=== PATIENT | female | born 1935 | race Caucasian/White ===

== ENCOUNTER → 2019-06-29 | Outpatient (CLI) | payer OTHER ==
[~2019-06-29] MED LIST: ACET325 PO; ASPI81CH PO; K-Phos Origina500 MG PO; LISI20 PO; OSEL75CA PO; Pedi-Dri 100,0060 GM TOP
[2019-06-29 17:04] LABS: BASOPHILS ABSOLUTE AUTO 0.06 K/mm3 (0.00-0.23); BASOPHILS PERCENT AUTO 1 % (0-2); EOSINOPHILS ABSOLUTE AUTO 0.14 K/mm3 (0.00-0.68); EOSINOPHILS PERCENT AUTO 2 % (0-6); Hematocrit 39.3 % (33.0-51.0); Hemoglobin 12.5 g/dL (11.5-16.0); IMMATURE GRAN ABSOLUTE AUTO 0.02 K/mm3 (0.00-0.10); IMMATURE GRAN PERCENT AUTO 0 % (0-1); LYMPHOCYTES ABSOLUTE AUTO 1.35 K/mm3 (0.84-5.20); LYMPHOCYTES PERCENT AUTO 22 % (21-46); MONOCYTES ABSOLUTE AUTO 0.53 K/mm3 (0.16-1.47); MONOCYTES PERCENT AUTO 9 % (4-13); Mean Corpuscular HGB 28.6 pg (26.0-34.0); Mean Corpuscular HGB Conc 31.8 g/dL (31.5-36.5); Mean Corpuscular Volume 90 fL (80-100); Mean Platelet Volume 10.3 fL (9.1-12.4); NEUTROPHILS ABSOLUTE AUTO 4.04 K/mm3 (1.96-9.15); NEUTROPHILS PERCENT AUTO 66 % (41-73); Platelet Count 432 K/mm3 (150-400); RDW Coefficient Variation 13.4 % (11.7-14.2); RDW Standard Deviation 43.9 fL (35.1-46.3); Red Blood Cell Count 4.37 M/mm3 (3.80-5.20); White Blood Cell Count 6.14 K/mm3 (4.00-11.30)
[2019-06-29 20:47] LABS: Alanine Aminotransfer (ALT/SGP 17 U/L (12-78); Albumin, Blood 3.3 g/dL (3.4-5.0); Albumin/Globulin Ratio 0.9 (0.8-1.8); Alk Phos 92 U/L (50-136); Anion Gap 4 mmol/L (6-16); Aspartate Aminotrans (AST/SGOT 12 U/L (12-37); Bilirubin, Total 0.4 mg/dL (0.1-1.0); Blood Urea Nitrogen 11 mg/dL (8-24); Bun/Creatinine Ratio 18.5 (12.0-20.0); CO2, Blood 30 mmol/L (21-32); Calcium, Blood 9.5 mg/dL (8.5-10.1); Chloride, Blood 106 mmol/L (98-108); Globulin, Blood 3.6 g/dL (2.2-4.0); Glomerular Filtration Rate >60 (60-); Glucose, Blood 110 mg/dL (70-99); Potassium, Blood 4.4 mmol/L (3.5-5.5); Sodium, Blood 140 mmol/L (136-145); Total Protein, Blood 6.9 g/dL (6.4-8.2)
== END | disposition home or self-care (01) ==
LOC: LAB EV 16:57 → LAB SHORT 16:57
PROVIDERS: Physician Assistant
DX: R20.2 Paresthesia of skin (principal)
CPT/HCPCS: 80053; 82607; 82746; 85025

== ENCOUNTER 2019-08-02 13:15 | Inpatient (IN) | payer MEDICARE ==
[~2019-08-02] VITALS: Ht 162.6 cm; Wt 73.4 kg
[2019-08-02 14:13] LABS: BASOPHILS ABSOLUTE AUTO 0.01 K/mm3 (0.00-0.23); BASOPHILS PERCENT AUTO 0 % (0-2); EOSINOPHILS PERCENT AUTO 0 % (0-6); Hematocrit 50.5 % (33.0-51.0); Hemoglobin 16.3 g/dL (11.5-16.0); IMMATURE GRAN ABSOLUTE AUTO 0.02 K/mm3 (0.00-0.10); IMMATURE GRAN PERCENT AUTO 1 % (0-1); LYMPHOCYTES ABSOLUTE AUTO 0.62 K/mm3 (0.84-5.20); LYMPHOCYTES PERCENT AUTO 17 % (21-46); MONOCYTES ABSOLUTE AUTO 0.49 K/mm3 (0.16-1.47); MONOCYTES PERCENT AUTO 13 % (4-13); Mean Corpuscular HGB 27.4 pg (26.0-34.0); Mean Corpuscular HGB Conc 32.3 g/dL (31.5-36.5); Mean Corpuscular Volume 85 fL (80-100); Mean Platelet Volume 11.5 fL (9.1-12.4); NEUTROPHILS ABSOLUTE AUTO 2.61 K/mm3 (1.96-9.15); NEUTROPHILS PERCENT AUTO 70 % (41-73); Platelet Count 251 K/mm3 (150-400); RDW Coefficient Variation 14.3 % (11.7-14.2); RDW Standard Deviation 44.3 fL (35.1-46.3); Red Blood Cell Count 5.95 M/mm3 (3.80-5.20); White Blood Cell Count 3.75 K/mm3 (4.00-11.30)
[2019-08-02 14:26] LABS: Albumin, Blood 3.1 g/dL (3.4-5.0); Albumin/Globulin Ratio 0.8 (0.8-1.8); Bilirubin, Total 0.4 mg/dL (0.1-1.0); Calcium, Blood 9.2 mg/dL (8.5-10.1); Creatinine, Blood 1.36 mg/dL (0.40-1.00); Globulin, Blood 3.9 g/dL (2.2-4.0); Potassium, Blood 3.7 mmol/L (3.5-5.5)
[2019-08-02] MEDS ORDERED: LISI20 PO (14:32)
[2019-08-02 16:10] LABS: Influenza A Negative (NEGATIVE); Influenza B Positive (NEGATIVE)
[2019-08-02 17:19] LABS: Phosphorus, Blood 4.4 mg/dL (2.5-4.9)
--- NOTE | 2019-08-03 04:59 | NUR ---
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 no complaints of discomfort since late yesterday afternoon. incontinent of urine. no diarrhea overnight. lung sounds scattered crackles upper lobes, dim with rhonchi in dependent bases. Patient pulled out IV around midnight. New 20G IV started in left forearm. Hydration bag finished late due to circumstances. Wakes easily, pleasant and cooperative with staff. Alert to self and reorients easily to situation and place/
[2019-08-03 05:23] LABS: BASOPHILS ABSOLUTE AUTO 0.01 K/mm3 (0.00-0.23); BASOPHILS PERCENT AUTO 0 % (0-2); EOSINOPHILS ABSOLUTE AUTO 0.01 K/mm3 (0.00-0.68); EOSINOPHILS PERCENT AUTO 0 % (0-6); Hemoglobin 13.5 g/dL (11.5-16.0); IMMATURE GRAN ABSOLUTE AUTO 0.01 K/mm3 (0.00-0.10); IMMATURE GRAN PERCENT AUTO 0 % (0-1); LYMPHOCYTES ABSOLUTE AUTO 1.01 K/mm3 (0.84-5.20); LYMPHOCYTES PERCENT AUTO 33 % (21-46); MONOCYTES ABSOLUTE AUTO 0.48 K/mm3 (0.16-1.47); MONOCYTES PERCENT AUTO 16 % (4-13); Mean Corpuscular HGB 27.4 pg (26.0-34.0); Mean Corpuscular HGB Conc 32.1 g/dL (31.5-36.5); Mean Corpuscular Volume 85 fL (80-100); Mean Platelet Volume 11.3 fL (9.1-12.4); NEUTROPHILS ABSOLUTE AUTO 1.53 K/mm3 (1.96-9.15); NEUTROPHILS PERCENT AUTO 50 % (41-73); Platelet Count 194 K/mm3 (150-400); RDW Coefficient Variation 14.3 % (11.7-14.2); RDW Standard Deviation 44.3 fL (35.1-46.3); Red Blood Cell Count 4.93 M/mm3 (3.80-5.20); White Blood Cell Count 3.05 K/mm3 (4.00-11.30)
[2019-08-03 05:48] LABS: Bun/Creatinine Ratio 28.9 (12.0-20.0); Calcium, Blood 8.4 mg/dL (8.5-10.1); Creatinine, Blood 1.28 mg/dL (0.40-1.00); Potassium, Blood 3.4 mmol/L (3.5-5.5)
--- NOTE | 2019-08-03 11:33 | NUR ---
CALLED DR DURON PT HAS RED ODOROUS RASH IN THE BREAST AND PANUS SKIN FOLDS RECIEVED VERBAL ORDER FOR NYSTATIN POWDER
--- NOTE | 2019-08-03 18:10 | NUR ---
SHIFT SUMMARY- PT WAS SEEN BY PT AND OT. RECOMENDATION FOR SNF PLACEMENT ON DISCHARGE. PT HAS A Hx OF DEMENTIA SHE HAS A VERY FORGETFUL SHORT TERM MEMORY. PT HAS BECOME AGRESSIVE AND BEGAN TO HIT THE THREADER WORKING WITH HER TODAY. SPOKE TO THE PT AND EXPLAINED THAT HITTING IS NOT OK. ASKED THAT SHE USE HER WORDS TO COMMUNICATE. PT THEN STATED SHE WAS SCARED AND DIDN'T KNOW WHAT WAS GOING ON; THEN ASKED WHY SHE WAS HERE (THIS WAS THE MOST FREQUENTLY ASKED QUESTION OF THE DAY). STAFF AGAIN EXPLAINED TO THE PT WHERE SHE IS AND WHY SHE IS HERE. ASKED HER TO TELL STAFF TO SLOW DOWN OR THAT SHE IS SCARED, RATHER THAN HITTING PEOPLE. PT ACTUALLY DID THIS AFTER THAT DISCUSSION. AND A RESULT SEEMED MUCH HAPPIER WITH HER CARE. PT HAD A C/O PAIN IN HER RIGHT LEG. GAVE TYLENOL PT WENT TO SLEEP FOR THE FOLLOW UP. PT REMOVED HER OWN DNR BRACELET TODAY. INSTRUCTED HER TO NOT REMOVE HER IV UNDER ANY CIRCUMSTANCES. PT OBLIGED. PT IS CURRENTLY IN BED SLEEPING WITH HER CALL LIGHT IN REACH. PT DID USE THE CALL LIGHT APPROPRIATELY AFTER DETAILED INSTRUCTIONS WERE GIVEN (TWICE).
--- NOTE | 2019-08-04 08:04 | NUR ---
SHIFT SUMMARY: PT ALERT TO SELF ONLY. FREQ ASKED WHERE SHE IS AND WHY SHE IS HERE. PT KNOWN TO BE VIOLENT AT TIMES. CALM AND COOPERATIVE THROUGHOUT MOST OF NIGHT. PT HOLLERING OUT THIS MORNING. BED ALARM ON FOR SAFETY. PT OUT OF BED TO BATHROOM WITH SBA. VOIDING IN ATTENDS AND USING BATHROOM. PT SOB WITH EXERTION. COUGH CONGESTED AND HARSH. CONTINUE WITH TAMIFLU. AWAITING SNF PLACEMENT.
--- NOTE | 2019-08-04 16:52 | NUR ---
SHIFT SUMMARY PT VERY CONFUSED & FORGETFUL. ALARMS ON. PT SON UPDATED ON PT CONDITION THIS SHIFT. PT HAD BEDBATH THIS SHIFT. NO OTHER CHANGES IN ASSESSMENT AT THIS TIME. VSS. WILL CONTINUE TO MONITOR UNTIL TURNOVER IS COMPLETE.
[2019-08-05 05:54] LABS: Hematocrit 44.5 % (33.0-51.0); Hemoglobin 14.4 g/dL (11.5-16.0); Mean Corpuscular HGB 27.2 pg (26.0-34.0); Mean Corpuscular HGB Conc 32.4 g/dL (31.5-36.5); Mean Corpuscular Volume 84 fL (80-100); Mean Platelet Volume 11.4 fL (9.1-12.4); Platelet Count 192 K/mm3 (150-400); RDW Coefficient Variation 14.3 % (11.7-14.2); RDW Standard Deviation 43.3 fL (35.1-46.3); Red Blood Cell Count 5.29 M/mm3 (3.80-5.20); White Blood Cell Count 4.58 K/mm3 (4.00-11.30)
[2019-08-05 06:15] LABS: Albumin, Blood 2.9 g/dL (3.4-5.0); Anion Gap 6 mmol/L (6-16); Blood Urea Nitrogen 13 mg/dL (8-24); Bun/Creatinine Ratio 19.9 (12.0-20.0); CO2, Blood 28 mmol/L (21-32); Calcium, Blood 8.8 mg/dL (8.5-10.1); Chloride, Blood 108 mmol/L (98-108); Creatinine, Blood 0.65 mg/dL (0.40-1.00); Glomerular Filtration Rate >60 (60-); Glucose, Blood 93 mg/dL (70-99); Phosphorus, Blood 1.7 mg/dL (2.5-4.9); Potassium, Blood 3.7 mmol/L (3.5-5.5); Sodium, Blood 142 mmol/L (136-145)
--- NOTE | 2019-08-05 06:49 | NUR ---
SHIFT SUMMARY HAS BEEN CONFUSED THIS SHIFT. ATTEMPTED MULTIPLE TIME TO UNDERSTAND HER NEEDS SHE WAS REPEATEDLY YELLING, "HELP, HELP ME, HELP." WHEN ASKED WHAT SHE NEEDS SINCE HELP IS RIGHT NEXT TO HER, SHE STATES, "I DON'T KNOW, I JUST NEED HELP!" AND THEN YELLS AGAIN FOR HELP. HAS STATED THROGHOUT THE SHIFT THAT SHE DOESN'T FEEL GOOD, NURSING REITERTED THAT SHE HAS THE FLU AND THAT IT IS PART OF THE DISEASE PROCESS. SHE SAID, "OH, OK" THEN BEGAN TO YELL FOR HELP AGAIN. DENIES PAIN, DISCOMFORT, OR FURTHER NEEDS AT THIS TIME. SAFETY MEASURES IN PLACE. WILL GIVE HAND OFF TO ONCOMING SHIFT USING SBAR.
--- NOTE | 2019-08-05 12:48 | NUR ---
PT PULLING IVS. DR. SALGADO NOTIFIED THAT PT PULLED OUT HER IV. PT PULLED OUT IV OVERNIGHT. NO IV ACCESS ORDER REQUESTED. DR. SALGADO STATED SHE WILL REVIEW PT CHART. WILL CONTINUE TO MONITOR.
--- NOTE | 2019-08-05 17:32 | NUR ---
SHIFT SUMMARY NO CHANGES IN ASSESSMENT AT THIS TIME. PT VERY CONFUSED. REORIENTED NEEDED. PT UP IN CHAIR AT THIS TIME. PT WENT BACK AND FOURTH FROM CHAIR TO BED THROUGHOUT THE DAY. HR IN THE 80S. OTHER VITALS STABLE. WILL CONTINUE TO MONITOR UNITL TURNOVER IS COMPLETE.
--- NOTE | 2019-08-06 04:28 | NUR ---
SHIFT SUMMARY PATIENT HAD NO ACUTE CHANGES OBSERVED THIS SHIFT. AXOX 2 WITH HX OF DEMENTIA. NO IV ACCESS. VSS/AFEBRILE. ACTIVATED BED ALARM X THREE. PATIENT OFFERED TO USE BSC. DROPLET PRECAUTIONS. DENIES PAIN, SOB, AND N/V. ENCOURAGE PO FLUIDS. TAKES MEDICATION X ONE EACH AND LARGE CUT IN HALF. CALL LIGHT IN REACH. BED IN LOWEST POSITION. WILL CONTINUE TO MONITOR UNTIL DAY SHIFT NURSE ASSUMES CARE.
[2019-08-06 05:53] LABS: Albumin, Blood 2.5 g/dL (3.4-5.0); Anion Gap 8 mmol/L (6-16); Blood Urea Nitrogen 16 mg/dL (8-24); Bun/Creatinine Ratio 25.2 (12.0-20.0); CO2, Blood 25 mmol/L (21-32); Calcium, Blood 8.6 mg/dL (8.5-10.1); Chloride, Blood 109 mmol/L (98-108); Creatinine, Blood 0.64 mg/dL (0.40-1.00); Glomerular Filtration Rate >60 (60-); Glucose, Blood 96 mg/dL (70-99); Phosphorus, Blood 2.1 mg/dL (2.5-4.9); Potassium, Blood 3.8 mmol/L (3.5-5.5); Sodium, Blood 142 mmol/L (136-145)
--- NOTE | 2019-08-06 09:43 | NUR ---
PATIENT SLEEPING. WILL COME BACK TO ADMINISTER MEDICATIONS.
[2019-08-06] MEDS ORDERED: ACET325 PO (11:02)
[2019-08-06] MEDS ORDERED: ASPI81CH PO (11:03)
[2019-08-06] MEDS ORDERED: Pedi-Dri 100,0060 GM TOP (11:04)
[2019-08-06] MEDS ORDERED: OSEL75CA PO (11:05)
[2019-08-06] MEDS ORDERED: K-Phos Origina500 MG PO (11:06)
--- NOTE | 2019-08-06 16:54 | NUR ---
SHIFT SUMMARY THE PATIENT HAD A DECENT DAY. SHE TOOK A FEW NAPS, HOWEVER WHILE AWAKE SHE WOULD OFTEN YELL OUT, "HELP ME". AT ONE POINT I WENT TO SEE WHAT THE PATIENT NEEDED AND SHE SAID "ALL YOU CAN DO TO HELP ME IS TO GET A GUN AND SHOOT ME". I INFORMED HER THAT I DONT DO THAT AND LEFT HER. SHE IS VERY CONFUSED, DISORIENTED AND FORGETFUL. SHE CAN BE DIFFICULT TO REDIRECT HOWEVER THIS IS HER BASELINE. DISCHARGE PLANNERS ARE WORKING ON DISCHARGING THE PATIENT TO [facility] HOWEVER NEED TO WAIT FOR THE PATIENTS HEALTH (INFLUENZA) TO IMPROVE BEFORE SHE WILL BE ACCEPTED. THE PATIENT IS RESTING IN HER ROOM AT THIS TIME. WILL CONTINUE TO MONITOR AND PROVIDE CARE NEEDED.
--- NOTE | 2019-08-07 06:48 | NUR ---
PT with dementia hollers out frequently, co pain will administer tylenol. PT awaiting placement, has been living with son. Influenza B positive, on tamiflu. Incontinent of urine declined toileting.
--- NOTE | 2019-08-07 10:49 | NUR ---
Spiritual care visit conducted. Patient is lying in bed and resting but eaily awakens to the sound of her name. Patient patient repeats her questions and information several times in my brief visit. Patient tells me a couple of times that God is her best friend. I find patient to be pleasant and kind. Patient is unable to tell me if she has family that live near by. I listen empathically and provide companionship, a calming presence and prayer. I will continue to remain available to patient and family.
--- NOTE | 2019-08-07 16:53 | NUR ---
PT IS ALERT, ORIENTED TO SELF, THE PT APPEARS TO BE BREATHING EASILY ON RA, PT HAS AN OCCASIONAL HARSH LOOSE COUGH NON PRODUCTIVE, PT HAS BEEN UP MULTIPLE TIMES T/O THE DAY IS EASILY REDIRECTED, PT CALLS OUT WHEN SHE NEEDS HELP, PT WAS MEDICATED WITH TYLENOL FOR ALL OVER ACHY PAIN, PT IS A 1 PERSON STANDBY ASSIST WITH THE FWW, BED ALARM AND CHAIR ALARM IN USE
--- NOTE | 2019-08-07 18:02 | NUR ---
PT WAS TRANSFERRED FROM ROOM 336. SHE WAS ASSISTED TO HER NEW BED AND ORIENTED TO HER ROOM AND NURSING STAFF. PT IS ORIENTED TO HERSELF AND SITUATION. PT WAS ENCOURAGED TO USE HER CALL LIGHT BUT THE BED ALARM IS SET FOR SAFETY.
--- NOTE | 2019-08-07 18:03 | NUR ---
PT TRANSFERED PT WAS TRANSFERED TO ROOM 345 FOR CLOSER OBSERVATION, DUE TO FALL RISK, REPORT WAS GIVEN TO DIYA BROOKS, PT WAS TRANSFERED VIA WHEELCHAIR
--- NOTE | 2019-08-07 18:29 | NUR ---
SHIFT SUMMARY PATIENT DISORIENTED, REPEATEDLY CALLING OUT FOR HELP, UNABLE TO MAKE NEEDS KNOWN. BRIEF CHECKS COMPLETED AT LEAST Q 2 HRS. AWAITING PLACEMENT OF PATIENT TO FACILITY. LN TO CONT TO MONITOR.
--- NOTE | 2019-08-08 06:04 | NUR ---
SHIFT SUMMARY PT VERY RESTLESS AND ANXIOUS AT THE START OF THE SHIFT. SHE WOULD NOT STAY IN BED DESPITE REDIRECTION AND REORIENTATION. ADELITA CALDWELL, MAINTENANCE MECHANIC SUPERVISOR NOTIFIED AND IM ZYPREXA ORDERED. ZYPREXA ADMINISTERED WITH AFFECT. PT IS A/O TO SELF. SHE IS PLESANT WITH CARE. HACKING NON PRODUCTIVE COUGH. RESP E/U ON RA. PT HYPERTENSIVE THIS SHIFT REQUIRING A DOSE OF PO HYDRALYZINE. THERE HAVE BEEN NO OTHER CHANGES IN PT ASSESSMENT. BED IN LOWEST POSITION. CALL LIGHT WITHIN REACH. WILL CONTINUE TO MONITOR AND REPORT TO ONCOMING RN.
--- NOTE | 2019-08-08 10:29 | NUR ---
IT'S BEEN NOTED BY A COUPLE RN's THAT THE PATIENT MIGHT BE ASPIRATING FOOD AND DRINK. I CALLED DR DURON AT 1025 AND REQUESTED A SPEECH EVAL AND ORDER WAS GIVEN.
--- NOTE | 2019-08-08 15:58 | NUR ---
SPOKE WITH PATIENTS SON, DONALD, REGARDING PATIENTS DISCHARGE. DONALD WILL BE HERE IN ABOUT AN HOUR. SAYS TO SEND PRESCRIPTIONS TO [facility]; MEDS FAXED REQUESTED. PATIENT HAS NO PCP AT THIS TIME HOWEVER IS IN THE PROCESS OF BEING ESTABLISHED WITH [facility]. DISCHARGE INSTRUCTIONS PROVIDED TO PATIENT IN WRITTEN AND VERBAL FORMS. PATIENT INSTRUCTED TO SEE A PCP WITHIN A WEEK OR TO FOLLOW UP AT THE URGENT CARE IF NO PCP HAS BEEN ESTABLISHED YET. ALL QUESTIONS ANSWERED. WILL ASSIST PATIENT OUT IN WHEEL CHAIR WHEN SON ARRIVES.
--- NOTE | 2019-08-08 17:22 | NUR ---
PATIENT DISCHARGED HOME WITH SON AT 1720. PATIENT WAS PUSHED OUT TO VEHICLE IN W/C.
== END 2019-08-08 17:18 | disposition home or self-care (01) | DRG 194 ==
LOC: ER 13:15 → MEDS 15:41 → ENPENDDIS 08-06 11:31 → MEDS 08-07 18:05
PROVIDERS: Emergency Medicine; Internal Medicine; Nurse Practitioner Acute Care; ADMIT Internal Medicine
DX: J10.1 Influenza due to other identified influenza virus with other respiratory manifestations (principal); N17.9 Acute kidney failure, unspecified; F03.90 Unspecified dementia, unspecified severity, without behavioral disturbance, psychotic disturbance, mood disturbance, and anxiety; Z86.73 Personal history of transient ischemic attack (TIA), and cerebral infarction without residual deficits; I10 Essential (primary) hypertension; E86.0 Dehydration; E83.39 Other disorders of phosphorus metabolism; Z66 Do not resuscitate
CPT/HCPCS: 36415; 71045; 80048; 80053; 80069; 82550; 82947; 83735; 84100; 85025; 85027; 87804; 96360; 97110; 97116; 97162; 97166; 97530; 97535; 99285-25; A9270; J1650; J7030

== ENCOUNTER 2020-07-15 19:30 | Emergency (ER) | payer OTHER ==
[~2020-07-15] VITALS: Ht 162.6 cm; Wt 68.0 kg
[2020-07-15 20:07] LABS: BASOPHILS ABSOLUTE AUTO 0.05 K/mm3 (0.00-0.23); BASOPHILS PERCENT AUTO 1 % (0-2); EOSINOPHILS ABSOLUTE AUTO 0.19 K/mm3 (0.00-0.68); EOSINOPHILS PERCENT AUTO 3 % (0-6); Hematocrit 45.2 % (33.0-51.0); Hemoglobin 14.3 g/dL (11.5-16.0); IMMATURE GRAN ABSOLUTE AUTO 0.01 K/mm3 (0.00-0.10); IMMATURE GRAN PERCENT AUTO 0 % (0-1); LYMPHOCYTES ABSOLUTE AUTO 1.94 K/mm3 (0.84-5.20); LYMPHOCYTES PERCENT AUTO 32 % (21-46); MONOCYTES ABSOLUTE AUTO 0.57 K/mm3 (0.16-1.47); MONOCYTES PERCENT AUTO 9 % (4-13); Mean Corpuscular HGB 28.7 pg (26.0-34.0); Mean Corpuscular HGB Conc 31.6 g/dL (31.5-36.5); Mean Corpuscular Volume 91 fL (80-100); NEUTROPHILS ABSOLUTE AUTO 3.32 K/mm3 (1.96-9.15); NEUTROPHILS PERCENT AUTO 55 % (41-73); Platelet Count 330 K/mm3 (150-400); RDW Coefficient Variation 14.2 % (11.7-14.2); RDW Standard Deviation 47.4 fL (35.1-46.3); Red Blood Cell Count 4.99 M/mm3 (3.80-5.20); White Blood Cell Count 6.08 K/mm3 (4.00-11.30)
[2020-07-15] MEDS ORDERED: LISI20 PO (20:13)
[2020-07-15] MEDS ORDERED: Vitamin D2000 UNIT PO (20:14)
[2020-07-15] MEDS ORDERED: Cranberry400 MG PO (20:14)
[2020-07-15] MEDS ORDERED: MULVITA PO (20:14)
[2020-07-15 20:19] LABS: Alanine Aminotransfer (ALT/SGP 16 U/L (12-78); Albumin, Blood 3.6 g/dL (3.4-5.0); Albumin/Globulin Ratio 1.1 (0.8-1.8); Alk Phos 102 U/L (50-136); Anion Gap 4 mmol/L (6-16); Aspartate Aminotrans (AST/SGOT 15 U/L (12-37); Bilirubin, Total 0.4 mg/dL (0.1-1.0); Blood Urea Nitrogen 14 mg/dL (8-24); Bun/Creatinine Ratio 20.8 (12.0-20.0); CO2, Blood 29 mmol/L (21-32); Calcium, Blood 10.1 mg/dL (8.5-10.1); Chloride, Blood 104 mmol/L (98-108); Creatinine, Blood 0.67 mg/dL (0.40-1.00); Globulin, Blood 3.2 g/dL (2.2-4.0); Glomerular Filtration Rate >60 (60-); Glucose, Blood 95 mg/dL (70-99); Potassium, Blood 4.1 mmol/L (3.5-5.5); Sodium, Blood 137 mmol/L (136-145); Total Protein, Blood 6.8 g/dL (6.4-8.2)
[2020-07-15 20:48] LABS: Source, Urine Clean Catch
[2020-07-15 20:55] LABS: Appearance, Urine Clear (Clear); Bilirubin, Urine Neg (Neg); Blood, Urine 4+ (Neg); Color, Urine Yellow (P-Yellow); Glucose Qualitative, Urine Neg (Neg); Ketones, Urine Neg (Neg); Leukocyte Esterase, Urine 3+ (Neg); Nitrite, Urine Neg (Neg); Protein, Urine Neg (Neg); Specific Gravity, Urine 1.015 (1.003-1.022); Urobilinogen, Urine NORM (Normal)
[2020-07-15 21:08] LABS: Bacteria Mod /hpf; Squamous Epithelial Cells Not Seen /hpf (Few)
[2020-07-15] MEDS ORDERED: CEFP200 PO (21:54)
== END 2020-07-15 22:25 | disposition home or self-care (01) ==
LOC: ER 19:30
PROVIDERS: Emergency Medicine
DX: N39.0 Urinary tract infection, site not specified (principal); I10 Essential (primary) hypertension; Z86.73 Personal history of transient ischemic attack (TIA), and cerebral infarction without residual deficits; Z79.899 Other long term (current) drug therapy
CPT/HCPCS: 51701; 80053; 81001; 85025; 87077; 87086; 87186; 93005; 93010; 99284-25

== ENCOUNTER 2020-10-25 17:57 | Emergency (ER) | payer OTHER ==
[~2020-10-25] VITALS: Ht 160 cm; Wt 65.8 kg
[~2020-10-25 17:57] MED LIST changes: +CEFP200 PO; +Cranberry400 MG PO; +MULVITA PO; +Vitamin D2000 UNIT PO
[2020-10-25 18:54] LABS: BASOPHILS ABSOLUTE AUTO 0.06 K/mm3 (0.00-0.23); BASOPHILS PERCENT AUTO 1 % (0-2); EOSINOPHILS ABSOLUTE AUTO 0.15 K/mm3 (0.00-0.68); EOSINOPHILS PERCENT AUTO 2 % (0-6); Hematocrit 41.2 % (33.0-51.0); Hemoglobin 13.5 g/dL (11.5-16.0); IMMATURE GRAN ABSOLUTE AUTO 0.01 K/mm3 (0.00-0.10); IMMATURE GRAN PERCENT AUTO 0 % (0-1); LYMPHOCYTES ABSOLUTE AUTO 1.63 K/mm3 (0.84-5.20); LYMPHOCYTES PERCENT AUTO 24 % (21-46); MONOCYTES ABSOLUTE AUTO 0.62 K/mm3 (0.16-1.47); MONOCYTES PERCENT AUTO 9 % (4-13); Mean Corpuscular HGB Conc 32.8 g/dL (31.5-36.5); Mean Corpuscular Volume 88 fL (80-100); Mean Platelet Volume 9.9 fL (9.1-12.4); NEUTROPHILS ABSOLUTE AUTO 4.26 K/mm3 (1.96-9.15); NEUTROPHILS PERCENT AUTO 63 % (41-73); Platelet Count 318 K/mm3 (150-400); RDW Coefficient Variation 14.2 % (11.7-14.2); RDW Standard Deviation 45.8 fL (35.1-46.3); Red Blood Cell Count 4.66 M/mm3 (3.80-5.20); White Blood Cell Count 6.73 K/mm3 (4.00-11.30)
[2020-10-25 19:05] LABS: Alanine Aminotransfer (ALT/SGP 18 U/L (12-78); Albumin, Blood 3.5 g/dL (3.4-5.0); Albumin/Globulin Ratio 1.1 (0.8-1.8); Alk Phos 91 U/L (50-136); Anion Gap 5 mmol/L (6-16); Aspartate Aminotrans (AST/SGOT 17 U/L (12-37); Bilirubin, Total 0.4 mg/dL (0.1-1.0); Blood Urea Nitrogen 16 mg/dL (8-24); Bun/Creatinine Ratio 23.4 (12.0-20.0); CO2, Blood 29 mmol/L (21-32); Calcium, Blood 9.2 mg/dL (8.5-10.1); Chloride, Blood 105 mmol/L (98-108); Creatinine, Blood 0.68 mg/dL (0.40-1.00); Globulin, Blood 3.3 g/dL (2.2-4.0); Glomerular Filtration Rate >60 (60-); Glucose, Blood 90 mg/dL (70-99); Potassium, Blood 4.3 mmol/L (3.5-5.5); Sodium, Blood 139 mmol/L (136-145); Total Protein, Blood 6.8 g/dL (6.4-8.2)
[2020-10-25 19:15] LABS: International Normalized Ratio 0.91; Prothrombin Time Results 9.8 Sec (9.7-11.5)
[2020-10-25 19:35] LABS: Source, Urine Clean Catch
[2020-10-25 19:40] LABS: Appearance, Urine Bloody (Clear); Bilirubin, Urine Neg (Neg); Blood, Urine 5+ (Neg); Color, Urine Red (P-Yellow); Glucose Qualitative, Urine Neg (Neg); Ketones, Urine 1+ (Neg); Leukocyte Esterase, Urine 1+ (Neg); Nitrite, Urine Neg (Neg); Protein, Urine 4+ (Neg); Urobilinogen, Urine NORM (Normal)
[2020-10-25 19:54] LABS: Red Blood Cells, Urine TNTC /hpf (0-2)
[2020-10-25 19:56] LABS: Bacteria Mod /hpf; Squamous Epithelial Cells Few /hpf (Few)
[2020-10-25] MEDS ORDERED: Keflex500 MG PO (22:09)
== END 2020-10-25 22:30 | disposition home or self-care (01) ==
LOC: ER 17:57
PROVIDERS: Emergency Medicine; Physician Assistant
DX: N39.0 Urinary tract infection, site not specified (principal); R31.9 Hematuria, unspecified; I10 Essential (primary) hypertension; Z79.899 Other long term (current) drug therapy
CPT/HCPCS: 36415; 74177; 76856; 80053; 81001; 85025; 85610; 85730; 87077; 87086; 87186; 99284-25; A9270; J0696; Q9967

== ENCOUNTER → 2021-03-12 | Outpatient (CLI) | payer OTHER ==
[~2021-03-12] MED LIST changes: +Keflex500 MG PO
[2021-03-12 11:08] LABS: Source, Urine Clean Catch
[2021-03-12 12:13] LABS: Appearance, Urine Cloudy (Clear); Bilirubin, Urine Neg (Neg); Blood, Urine 2+ (Neg); Color, Urine Yellow (P-Yellow); Glucose Qualitative, Urine Neg (Neg); Ketones, Urine Neg (Neg); Leukocyte Esterase, Urine 2+ (Neg); Nitrite, Urine Neg (Neg); Protein, Urine 1+ (Neg); Specific Gravity, Urine 1.005 (1.003-1.022); Urobilinogen, Urine NORM (Normal)
[2021-03-12 13:34] LABS: Bacteria Many /hpf; Red Blood Cells, Urine 0-2 /hpf (0-2); Squamous Epithelial Cells Few /hpf (Few); White Blood Cells, Urine 0-2 /hpf (0-5)
== END | disposition home or self-care (01) ==
LOC: LAB SHORT 09:00 → LAB 09:00 → LAB FUT 02-17 11:10
PROVIDERS: Physician Assistant
DX: N39.0 Urinary tract infection, site not specified (principal); R30.9 Painful micturition, unspecified; F44.89 Other dissociative and conversion disorders
CPT/HCPCS: 81001; 87077; 87086; 87186

== ENCOUNTER → 2021-12-14 | Outpatient (CLI) | payer OTHER ==
[~2021-12-14] MED LIST changes: +QUET25 PO
== END | disposition home or self-care (01) ==
LOC: LAB SHORT 13:01
DX: N39.0 Urinary tract infection, site not specified (principal)
CPT/HCPCS: 87086

== ENCOUNTER → 2022-07-29 | Outpatient (CLI) | payer OTHER ==
[~2022-07-29] MED LIST changes: +ALPR.25 PO; +AMLO5 PO; +CEFD300 PO; +FURO20 PO; +HYDCHL12.5 PO; +OLAN5 PO; +ONDA4ODT MM; +POTA10T PO
[2022-07-29 10:46] LABS: Albumin, Blood 3.4 g/dL (3.4-5.0); Albumin/Globulin Ratio 1.1 (0.8-1.8); Bilirubin, Total 0.4 mg/dL (0.1-1.0); Calcium, Blood 9.6 mg/dL (8.5-10.1); Creatinine, Blood 0.65 mg/dL (0.40-1.00); Globulin, Blood 3.1 g/dL (2.2-4.0); Potassium, Blood 3.6 mmol/L (3.5-5.5); Total Protein, Blood 6.5 g/dL (6.4-8.2)
== END | disposition home or self-care (01) ==
LOC: LAB SHORT 09:15
PROVIDERS: Physician Assistant
DX: I10 Essential (primary) hypertension (principal)
CPT/HCPCS: 80053

== ENCOUNTER 2023-01-27 11:23 | Emergency (ER) | payer OTHER ==
[~2023-01-27] VITALS: Ht 165.1 cm; Wt 74.8 kg
[2023-01-27 15:49] VITALS: BP 133/76
== END 2023-01-27 16:30 | disposition home or self-care (01) ==
LOC: ER 11:23
DX: M54.6 Pain in thoracic spine (principal); I10 Essential (primary) hypertension; F03.90 Unspecified dementia, unspecified severity, without behavioral disturbance, psychotic disturbance, mood disturbance, and anxiety; Z86.73 Personal history of transient ischemic attack (TIA), and cerebral infarction without residual deficits; Z79.899 Other long term (current) drug therapy; Z87.891 Personal history of nicotine dependence; W18.30XA Fall on same level, unspecified, initial encounter
CPT/HCPCS: 72070; 72100; 99283-25

== ENCOUNTER 2023-03-09 12:43 | Emergency (ER) | payer OTHER ==
[~2023-03-09] VITALS: Ht 157.5 cm; Wt 77.1 kg
[2023-03-09 15:28] VITALS: BP 140/61
== END 2023-03-09 18:30 | disposition home or self-care (01) ==
LOC: ER 12:43
DX: R51.9 Headache, unspecified (principal); W18.30XA Fall on same level, unspecified, initial encounter; Z79.899 Other long term (current) drug therapy; I10 Essential (primary) hypertension; I48.91 Unspecified atrial fibrillation
CPT/HCPCS: 70450; 71046; 72125; 73562-RT; 99284-25; G0480

== ENCOUNTER 2023-04-06 02:39 | Emergency (ER) | payer OTHER ==
[~2023-04-06] VITALS: Ht 167.6 cm; Wt 90.7 kg
[2023-04-06] MEDS ORDERED: LORA1SY (03:50)
[2023-04-06] MEDS ORDERED: OLANZAPINE1024 (03:52)
[2023-04-06] MEDS ORDERED: NYSTRIT (03:52)
[2023-04-06] MEDS ORDERED: BISA10S (03:53)
[2023-04-06] MEDS ORDERED: TRAM50 (03:53)
[2023-04-06] MEDS ORDERED: ANASPAZ0.125 MG (03:54)
[2023-04-06] MEDS ORDERED: DULCOLAX400 MG/5 M (03:54)
[2023-04-06] MEDS ORDERED: MORPHINE SULFAT20 MG (03:55)
[2023-04-06] MEDS ORDERED: SENNA LAXATIVE8.6 MG (03:56)
[2023-04-06 04:48] LABS: BASOPHILS ABSOLUTE AUTO 0.05 K/mm3 (0.00-0.23); BASOPHILS PERCENT AUTO 1 % (0-2); EOSINOPHILS ABSOLUTE AUTO 0.73 K/mm3 (0.00-0.68); EOSINOPHILS PERCENT AUTO 13 % (0-6); Hematocrit 33.4 % (33.0-51.0); Hemoglobin 10.7 g/dL (11.5-16.0); IMMATURE GRAN ABSOLUTE AUTO 0.02 K/mm3 (0.00-0.10); IMMATURE GRAN PERCENT AUTO 0 % (0-1); LYMPHOCYTES ABSOLUTE AUTO 1.49 K/mm3 (0.84-5.20); LYMPHOCYTES PERCENT AUTO 27 % (21-46); MONOCYTES ABSOLUTE AUTO 0.62 K/mm3 (0.16-1.47); MONOCYTES PERCENT AUTO 11 % (4-13); Mean Corpuscular HGB 27.6 pg (26.0-34.0); Mean Corpuscular Volume 86 fL (80-100); Mean Platelet Volume 9.1 fL (9.1-12.4); NEUTROPHILS ABSOLUTE AUTO 2.59 K/mm3 (1.96-9.15); NEUTROPHILS PERCENT AUTO 47 % (41-73); Platelet Count 307 K/mm3 (150-400); RDW Coefficient Variation 15.1 % (11.7-14.2); RDW Standard Deviation 47.8 fL (35.1-46.3); Red Blood Cell Count 3.87 M/mm3 (3.80-5.20)
[2023-04-06 05:12] LABS: Albumin, Blood 2.9 g/dL (3.4-5.0); Albumin/Globulin Ratio 0.9 (0.8-1.8); Bilirubin, Total 0.3 mg/dL (0.1-1.0); Bun/Creatinine Ratio 27.5 (12.0-20.0); Calcium, Blood 9.4 mg/dL (8.5-10.1); Creatinine, Blood 0.77 mg/dL (0.40-1.00); Globulin, Blood 3.1 g/dL (2.2-4.0); Potassium, Blood 3.8 mmol/L (3.5-5.5)
[2023-04-06 06:45] VITALS: BP 167/44
== END 2023-04-06 07:28 | disposition home or self-care (01) ==
LOC: ER 02:39
PROVIDERS: Student in an Organized Health Care Education/Training Program
DX: S00.03XA Contusion of scalp, initial encounter (principal); M54.2 Cervicalgia; I10 Essential (primary) hypertension; F03.90 Unspecified dementia, unspecified severity, without behavioral disturbance, psychotic disturbance, mood disturbance, and anxiety; Z86.73 Personal history of transient ischemic attack (TIA), and cerebral infarction without residual deficits; Z79.899 Other long term (current) drug therapy; W18.30XA Fall on same level, unspecified, initial encounter
CPT/HCPCS: 70450; 72125; 80053; 85025; 93005; 93010; 99284-25

== ENCOUNTER 2023-05-05 20:25 | Emergency (ER) | payer OTHER ==
[~2023-05-05] VITALS: Ht 172.7 cm; Wt 63.5 kg
[~2023-05-05 20:25] MED LIST changes: +ANASPAZ0.125 MG; +BISA10S; +DULCOLAX400 MG/5 M; +LORA1SY; +MORPHINE SULFAT20 MG; +NYSTRIT; +OLANZAPINE1024; +SENNA LAXATIVE8.6 MG; +TRAM50
[2023-05-05 22:00] VITALS: BP 128/43
== END 2023-05-05 22:37 | disposition home or self-care (01) ==
LOC: ER 20:25
DX: T14.8XXA Other injury of unspecified body region, initial encounter (principal); M25.562 Pain in left knee; M25.572 Pain in left ankle and joints of left foot; I10 Essential (primary) hypertension; F03.90 Unspecified dementia, unspecified severity, without behavioral disturbance, psychotic disturbance, mood disturbance, and anxiety; Z86.73 Personal history of transient ischemic attack (TIA), and cerebral infarction without residual deficits; Z79.899 Other long term (current) drug therapy; W18.30XA Fall on same level, unspecified, initial encounter
CPT/HCPCS: 73562-LT; 73610; 99283-25

== ENCOUNTER 2023-05-07 19:55 | Emergency (ER) | payer OTHER ==
[~2023-05-07] VITALS: Ht 172.7 cm; Wt 68.0 kg
[2023-05-07 22:19] LABS: BASOPHILS ABSOLUTE AUTO 0.06 K/mm3 (0.00-0.23); BASOPHILS PERCENT AUTO 1 % (0-2); EOSINOPHILS ABSOLUTE AUTO 0.26 K/mm3 (0.00-0.68); EOSINOPHILS PERCENT AUTO 4 % (0-6); Hematocrit 34.8 % (33.0-51.0); Hemoglobin 11.3 g/dL (11.5-16.0); IMMATURE GRAN ABSOLUTE AUTO 0.02 K/mm3 (0.00-0.10); IMMATURE GRAN PERCENT AUTO 0 % (0-1); LYMPHOCYTES ABSOLUTE AUTO 1.24 K/mm3 (0.84-5.20); LYMPHOCYTES PERCENT AUTO 20 % (21-46); MONOCYTES ABSOLUTE AUTO 0.52 K/mm3 (0.16-1.47); MONOCYTES PERCENT AUTO 9 % (4-13); Mean Corpuscular HGB 28.1 pg (26.0-34.0); Mean Corpuscular HGB Conc 32.5 g/dL (31.5-36.5); Mean Corpuscular Volume 87 fL (80-100); Mean Platelet Volume 10.2 fL (9.1-12.4); NEUTROPHILS ABSOLUTE AUTO 3.98 K/mm3 (1.96-9.15); NEUTROPHILS PERCENT AUTO 65 % (41-73); Platelet Count 425 K/mm3 (150-400); RDW Coefficient Variation 14.8 % (11.7-14.2); RDW Standard Deviation 47.5 fL (35.1-46.3); Red Blood Cell Count 4.02 M/mm3 (3.80-5.20); White Blood Cell Count 6.08 K/mm3 (4.00-11.30)
[2023-05-07 22:34] LABS: Albumin, Blood 3.1 g/dL (3.4-5.0); Albumin/Globulin Ratio 0.9 (0.8-1.8); Bilirubin, Total 0.2 mg/dL (0.1-1.0); Bun/Creatinine Ratio 27.4 (12.0-20.0); Calcium, Blood 9.2 mg/dL (8.5-10.1); Creatinine, Blood 0.8 mg/dL (0.40-1.00); Globulin, Blood 3.4 g/dL (2.2-4.0); Magnesium, Blood 1.9 mg/dL (1.6-2.4); Potassium, Blood 4.2 mmol/L (3.5-5.5); Total Protein, Blood 6.5 g/dL (6.4-8.2)
[2023-05-08 01:30] VITALS: BP 147/64
== END 2023-05-08 02:15 | disposition home or self-care (01) ==
LOC: ER 19:55
PROVIDERS: Student in an Organized Health Care Education/Training Program
DX: S61.412A Laceration without foreign body of left hand, initial encounter (principal); W05.0XXA Fall from non-moving wheelchair, initial encounter; Z23 Encounter for immunization; Z79.899 Other long term (current) drug therapy; Z79.891 Long term (current) use of opiate analgesic; I10 Essential (primary) hypertension; I48.91 Unspecified atrial fibrillation
CPT/HCPCS: 12002; 70450; 72125; 73120; 80053; 83735; 84484; 85025; 90471; 90715; 93005; 93010; 99284-25; A9270